=== PATIENT | male | born 1975 | race Caucasian/White ===

== ENCOUNTER 2017-10-15 05:30 | Emergency (ER) | payer OTHER ==
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
[2017-10-15] MEDS ORDERED: HYDROmorphone 0.5 MG/0.5 ML SYRINGE IM ONE (06:06)
[2017-10-15] MEDS ORDERED: Silver Sulfadiazine 1% Crm 400 GM Jar TOP ONE (06:40)
== END 2017-10-15 07:05 | disposition home or self-care (01) ==
LOC: JD.ED 05:30
DX: T23.201A Burn of second degree of right hand, unspecified site, initial encounter (principal); T23.211A Burn of second degree of right thumb (nail), initial encounter; Z79.899 Other long term (current) drug therapy; X58.XXXA Exposure to other specified factors, initial encounter
CPT/HCPCS: 16020; 96372; 99283; A9270; J1170; 16000

== ENCOUNTER 2021-03-04 08:24 | Emergency (ER) | payer BC ==
--- NOTE | 2021-03-04 08:43 | EDM.PDOC ---
ED HPI GENERAL MEDICAL PROBLEM - General Chief Complaint: Cardiovascular Problem Stated Complaint: COVID +\ WEAKNESS Time Seen by Provider: 03/04/21 08:52 Source of Information: Reports: Patient History Limitations: Reports: No Limitations - History of Present Illness INITIAL COMMENTS - FREE TEXT/NARRATIVE: 45-year-old male presents to the ED with known COVID-19 illness proving positive last February 26. He was tested because 3 of his coworkers have become Covid positive in the prior week. He resides in [facility]. He has lost his sense of taste and smell. Mild sinus congestion. Initially a sore throat but much better now. Symptoms of headache and generalized myalgia and diarrhea really became worse on March 01. Still has poor appetite for solids but is been taking adequate fluids. Generalized weakness. Body aches and pains are much improved. No further fever. Does have a paroxysmal productive cough bringing up quite a bit of sputum this morning. O2 sats in the ED are 98 to 99% however. Diarrhea is also slowly improving. Was really bad the first 4 to 5 days of illness but stools are semiformed at this time. No blood. Onset: Sudden Onset Date: 02/25/21 Duration: Day(s):, Constant, Getting Worse (Worsening productive cough.) Location: Reports: Chest (Harsh paroxysmal intermittently productive cough), Other (Loss of sense of taste and smell. Decreased appetite mild diarrhea) Quality: Reports: Other (Loss of sense of taste and smell with mild nasal congestion. No sore throat. Mild diarrhea improving. Increased paroxysmal productive cough of white foamy sputum) Severity: Moderate Improves with: Reports: Rest Worsens with: Reports: Other Context: Reports: Sick Contact (Spouse). Denies: Activity (Worse with exposure to warm environment), Exercise, Lifting, Trauma, Other Associated Symptoms: Reports: Cough, cough w sputum, Fever/Chills, Loss of Appetite, Malaise, Shortness of Breath, Weakness, Other (Diarrhea improving stools are semiformed.). Denies: Confusion, Chest Pain, Diaphoresis (Initially but not now), Headaches, Nausea/Vomiting, Rash, Seizure, Syncope Treatments [employer]ER: Reports: NSAIDS (Motrin.) - Related Data Allergies Allergy/AdvReac Type Severity Reaction Status Date / Time cat dander Allergy Other Verified 03/04/21 08:42 levofloxacin [From Levaquin] Allergy Leg Cramps Verified 03/04/21 08:42 Home Meds: Home Meds ALPRAZolam [Xanax] 0.25 mg PO BEDTIME PRN 03/04/21 [History] Semaglutide [Ozempic] 0.5 mg SQ WEEKLY 03/04/21 [History] Past Medical History Cardiovascular History: Reports: Afib Psychiatric History: Reports: Anxiety Endocrine/Metabolic History: Reports: Diabetes, Type II, Obesity/BMI 30+ - Past Surgical History GI Surgical History: Reports: Cholecystectomy (Carried out in November of this year. Identified to have a mildly elevated hemoglobin A1c at that time and is considered prediabetic.) Other Musculoskeletal Surgeries/Procedures:: surgery in chin Social & Family History - Tobacco Use Tobacco Use Status *Q: Never Tobacco User - Caffeine Use Caffeine Use: Reports: Coffee - Living Situation & Occupation Living situation: Reports: Occupation: Employed ED ROS GENERAL - Review of Systems Review Of Systems: See Below Constitutional: Reports: Fever (Initial onset of fever and chills but not now), Malaise, Fatigue, Decreased Appetite, Weight Loss HEENT: Reports: Sinus Problem, Other (Sinus congestion) Respiratory: Reports: Shortness of Breath, Cough. Denies: Wheezing, Pleuritic Chest Pain, Sputum, Hemoptysis (Remittent paroxysmal cough) Cardiovascular: Denies: Chest Pain, Blood Pressure Problem, Claudication, Lightheadedness, Orthopnea Endocrine: Reports: Fatigue, High Glucose (Sugars have been running only slightly higher than normal) GI/Abdominal: Reports: Diarrhea (Really bad the first 4 to 5 days of illness improving now.), Nausea. Denies: Melena, Vomiting (Rare nausea no vomiting) : Reports: No Symptoms Musculoskeletal: Reports: Other Skin: Reports: No Symptoms (Generalized myalgia again getting better.) Neurological: Reports: No Symptoms Psychiatric: Reports: No Symptoms Hematologic/Lymphatic: Reports: No Symptoms Immunologic: Reports: No Symptoms ED EXAM, GENERAL - Physical Exam Exam: See Below Exam Limited By: No Limitations General Appearance: Alert, WD/WN, No Apparent Distress, Other (Temperature is 35.8 degrees. Heart rate 112 and sinus at the bedside. Respiratory to 20 with O2 sats of 99% room air. BP 122/98) Eye Exam: Bilateral Eye: Normal Inspection (No scleral icterus or blepharal pallor), PERRL Ears: Normal TMs Throat/Mouth: Normal Inspection, Normal Lips, Normal Oropharynx, Other (Very) Head: Atraumatic ( slight erythema of the posterior pharynx without exudate), Normocephalic Neck: Normal Inspection, Supple, Non-Tender, Full Range of Motion. No: Carotid Bruit, Lymphadenopathy (L), Lymphadenopathy (R) Respiratory/Chest: Lungs Clear, Normal Breath Sounds, No Accessory Muscle Use, Respiratory Distress (Mild tachypnea.). No: Rhonchi, Wheezing Cardiovascular: Normal Peripheral Pulses, Regular Rate, Rhythm, No Murmur, No Rub, Tachycardia (Resting tachycardia of 106/min) Peripheral Pulses: 3+: Carotid (L), Carotid (R), Posterior Tibial (L), Posterior Tibial (R), Dorsalis Pedis (L), Dorsalis Pedis (R) GI/Abdominal: Normal Bowel Sounds, Soft, Non-Tender, No Organomegaly, No Distention, No Abnormal Bruit, Pelvis Stable, Other (No surgical scars) Back Exam: Normal Inspection, Full Range of Motion. No: CVA Tenderness (L), CVA Tenderness (R) Extremities: Normal Inspection, Normal Range of Motion, Non-Tender, No Pedal Edema Neurological: Alert, Oriented, CN II-XII Intact, Normal Cognition, Normal Gait Psychiatric: Normal Affect, Normal Mood Skin Exam: Warm, Dry, Intact, Normal Color, No Rash Course - Vital Signs Last Recorded V/S: Last Vital Signs Temp 35.8 C L 03/04/21 08:30 Pulse 112 H 03/04/21 08:30 Resp 20 03/04/21 08:30 BP 122/98 H 03/04/21 08:30 Pulse Ox 99 03/04/21 08:30 - Orders/Labs/Meds Orders: Active Orders 24 hr Category Date Time Status Chest 1V Frontal [CR] Stat Exams 03/04/21 09:06 Taken - Radiology Interpretation Free Text/Narrative:: 45-year-old male with known COVID-19 illness proven positive on testing on February 26. Illness started the day prior. Initially had quite bad diarrhea fever chills and generalized myalgia which have all improved. Still has mild diarrhea but stools are semiformed. Appetite for solids remains poor. Taking adequate fluids. Loss of sense of taste of smell and taste. Prior harsh paroxysmal productive cough this morning. O2 sats are 99% however in room air. Overall I think he is doing very well for being on day 8 or 9 of illness. He is a type II diabetic and his BMI is 38.4 placing him at higher risk for further problems. However at this time I believe he is doing very well. Plan 1 view chest x-ray to be done - Re-Assessments/Exams Free Text/Narrative Re-Assessment/Exam: 03/04/21 09:29 chest x-ray reveals a very minimal infiltrate right upper lobe of the lung but no severe viral pneumonia. He is a potential candidate for Regeneron or monoclonal antibodies. I will fill out appropriate form for him since this is becoming more centralized as to who should receive monoclonal antibody therapy. Information about the use of monoclonal antibodies was given to the patient to read. He did accept the fax sheet for patients and patients/caregivers for Regeneron monoclonal antibody treatments to read and review. He is aware that the therapy has been approved for emergency use authorization process and has not yet been fully FDA reviewed or approved. He i s aware of the potential risk from the therapy including allergic reactions and including anaphylaxis which could result in . Offered opportunity to ask questions and all questions were answered. The patient Mr. Morris Reilly voiced understanding and agreed to proceed with treatment if he is a candidate. He does make 2 criteria with high BMI and prediabetic state using semaglutide. However at this time he appears to have a milder form of the illness with O2 sats preserved at 98 to 99% room air. Minimal spot of pneumonia right upper lobe only on chest x-ray. Departure - Departure Time of Disposition: 09:43 Disposition: Home, Self-Care 01 Reason for Transfer *Q: Other Condition: Fair Clinical Impression: COVID-19 determined by clinical diagnostic criteria, History of prediabetes Instructions: COVID-19 Frequently Asked Questions, COVID-19 Vaccine Information, 10 Things You Can Do to Manage Your COVID-19 Symptoms at Home - CDC (11/27/2020), COVID-19: Quarantine vs. Isolation - [facility] (04/30/2020) Referrals: Lisa Groves NP [Primary Care Provider] - Forms: ED Department Discharge Additional Instructions: The peopleEvaluation in the emergency room today in regards to COVID-19 illness diagnosed by oral testing 1 week ago February 26. Symptoms really did not become severe until Monday, March 01. Due to severe paroxysmal cough this morning you have elected to come to the ED. You are found to be afebrile i.e. no fever. Mild nasal congestion. Diarrhea improving appetite remains poor for solids but taking adequate fluids. Chest x-ray done through the ED shows a very minimal early pneumonia right upper lobe. You do have risk factors with a BMI of 38.4 but have lost weight since diagnosis of prediabetes. At this time he would be a candidate for monoclonal antibody therapy. Appropriate forms were filled out and sent to [facility] for their evaluation and they will call you directly and arrange for infusion of monoclonal antibodies if this is what you decide to pursue likely tomorrow through the hospital here in [place]. Otherwise continue Motrin as needed for fever body aches headaches. Avoid dairy products until diarrhea is improved. Also avoid apple juice and grape juice until sternal stools are formed back up. Diet as tolerated. I agree with skipping sema you are considered contagious for at least another 3 days glutide treatment this week and resuming again next week. You are considered contagious to others for at least 3 days unlikely 5 days since illness really got worse on Monday. It is felt that we should have the virus by coughing for 10 to 12 days after onset of illness. Sepsis Event Note (ED) - Evaluation Sepsis Screening Result: No Definite Risk - Focused Exam Vital Signs: Vital Signs Temp Pulse Resp BP Pulse Ox 03/04/21 08:30 35.8 C L 112 H 20 122/98 H 99 - My Orders Last 24 Hours: My Active Orders 03/04/21 09:06 Chest 1V Frontal [CR] Stat - Assessment/Plan Last 24 Hours: My Active Orders 03/04/21 09:06 Chest 1V Frontal [CR] Stat
--- NOTE | 2021-03-04 09:59 | CR ---
Chest: Frontal view of the chest was obtained. Comparison: No prior chest imaging is available. Minimal increased density is noted peripherally within the the left and right upper lungs. Lungs otherwise are clear. Heart size and mediastinum are within normal limits. Scattered degenerative change is noted within the spine. Impression: 1. Minimal densities peripherally within both upper lungs. Findings likely representing minimal COVID pneumonia. Diagnostic code #3
== END 2021-03-04 10:08 | disposition home or self-care (01) ==
LOC: JD.ED 08:24
DX: U07.1 COVID-19 (principal); I48.91 Unspecified atrial fibrillation; E11.9 Type 2 diabetes mellitus without complications; E66.9 Obesity, unspecified; Z68.38 Body mass index [BMI] 38.0-38.9, adult; Z88.1 Allergy status to other antibiotic agents; Z91.09 Other allergy status, other than to drugs and biological substances
CPT/HCPCS: 71045; 71045-26; 99283-25